=== PATIENT | male | born 1965 | race Caucasian/White ===

== ENCOUNTER 2019-01-11 22:19 | Emergency (ER) | payer MEDICAID ==
[~2019-01-11] VITALS: Ht 177.8 cm; Wt 81.6 kg
[2019-01-11 22:19] VITALS: BP_SYST 158
[2019-01-11] MEDS ORDERED: IBUPROFEN 800 MG TABLET PO ONE (23:00)
[2019-01-11 23:20] VITALS: BP_SYST 140
== END 2019-01-11 23:25 ==
LOC: SED 22:19
DX: G44.209 Tension-type headache, unspecified, not intractable (principal); R03.0 Elevated blood-pressure reading, without diagnosis of hypertension
CPT/HCPCS: 99283